=== PATIENT | male | born 1970 | race Caucasian/White ===

== ENCOUNTER 2016-12-21 16:08 | Emergency (ER) | payer OTHER | END 2016-12-21 17:10 | disposition home or self-care (01) | LOC: ER 16:08 | DX: J11.1 Influenza due to unidentified influenza virus with other respiratory manifestations (principal); Z98.890 Other specified postprocedural states; Z88.5 Allergy status to narcotic agent; Z88.6 Allergy status to analgesic agent | CPT/HCPCS: 87400; 99283 ==